=== PATIENT | female | born 1980 | race Caucasian/White ===

== ENCOUNTER 2017-12-31 12:02 | Emergency (ER) | payer OTHER ==
[~2017-12-31] VITALS: Ht 162.6 cm; Wt 72.6 kg
[~2017-12-31 12:02] MED LIST: ATIVAN0.5 MG PO; CARISOPRODOL 3350 MG PO; CLONAZEPAM 1 MG1 M1 PO; GABAPENTIN 100100 MG PO; KEFLEX500 MG PO; MACROBID 100 M100 M1 PO; METFORMIN HCL1000 MG PO; NOHOMEMEDICATIONS; NORCO 5-325 TA1 EACH PO; NORFLEX100 MG PO; PHENERGAN 25 MG25 M1 PO; PHENTERMINE H37.5 M1 PO; PROMS25 WY RECTAL; TRAMADOL 50 MG50 MG PO; [UNRECOGNIZED DRUG - REMARK]
[2017-12-31 12:04] VITALS: BP 135/94
[2017-12-31 12:41] LABS: ABSOLUTE NEUTROPHILS 6.4 thou/uL (1.4-8.2); BASOPHILS 0.6 % (0.0-2.0); EOSINOPHILS 0.8 % (0.0-3.0); HEMATOCRIT 41.5 % (37.0-47.0); LYMPHOCYTES 11.2 % (24.0-44.0); MCH 27.1 pg (26.0-34.0); MCHC 33.6 g/dL (28.0-37.0); MCV 80.5 fL (80.0-100.0); MONOCYTES 6.8 % (1.0-8.0); PLATELET COUNT 316 thou/uL (150-400); POLYS 80.6 % (36.0-66.0); RBC 5.16 mil/uL (4.20-5.00); RDW 15.2 % (10.5-14.5); WBC 7.9 thou/uL (4.0-11.0)
[2017-12-31] MEDS ORDERED: ZOFRAN ODT4 MG PO (12:45)
[2017-12-31] MEDS ORDERED: TESSALON PERLE100 MG PO (12:45)
[2017-12-31] MEDS ORDERED: PHENERGAN 25 MG25 M1 PO (12:45)
[2017-12-31] MEDS ORDERED: PROAIR HFA8.5 GM INH (12:48)
[2017-12-31 12:53] LABS: CALCIUM 9.1 mg/dL (8.5-10.1); CREATININE 0.7 mg/dL (0.6-1.0); POTASSIUM 3.6 mmol/L (3.5-5.1)
[2017-12-31 12:58] LABS: ALBUMIN 4.1 g/dL (3.4-5.0); DIRECT BILIRUBIN 0.1 mg/dL (<0.1-0.3); TOTAL BILIRUBIN 0.3 mg/dL (<0.1-1.0); TOTAL PROTEIN 7.8 g/dL (6.4-8.2)
[2017-12-31] MEDS ORDERED: ZOCOR20 MG PO (13:12)
[2017-12-31 13:15] LABS: URINE BILIRUBIN NEGATIVE (Negative); URINE BLOOD NEGATIVE (Negative); URINE CLARITY CLEAR; URINE COLOR YELLOW; URINE GLUCOSE-RANDOM* NEGATIVE (Negative); URINE KETONES 1+ (Negative); URINE LEUKOCYTES NEGATIVE (Negative); URINE NITRITE NEGATIVE (Negative); URINE PROTEIN (DIPSTICK) NEGATIVE (Negative); URINE UROBILINOGEN 0.2 E.U./dl (0.2-1.0)
== END 2017-12-31 13:00 | disposition home or self-care (01) ==
LOC: ER 12:02
PROVIDERS: Emergency Medicine
DX: J11.1 Influenza due to unidentified influenza virus with other respiratory manifestations (principal); J98.01 Acute bronchospasm; R11.2 Nausea with vomiting, unspecified; Z90.89 Acquired absence of other organs; E11.9 Type 2 diabetes mellitus without complications

== ENCOUNTER 2018-03-03 02:16 | Emergency (ER) | payer OTHER ==
[~2018-03-03] VITALS: Ht 165.1 cm; Wt 72.6 kg
[~2018-03-03 02:16] MED LIST changes: +PROAIR HFA8.5 GM INH; +TESSALON PERLE100 MG PO; +ZOCOR20 MG PO; +ZOFRAN ODT4 MG PO
[2018-03-03] MEDS ORDERED: FLOMAX0.4 MG PO (02:30)
[2018-03-03] MEDS ORDERED: CIPRO500 MG PO (02:30)
[2018-03-03 02:51] LABS: URINE BILIRUBIN NEGATIVE (Negative); URINE BLOOD 2+ (Negative); URINE CLARITY CLEAR; URINE COLOR YELLOW; URINE GLUCOSE-RANDOM* NEGATIVE (Negative); URINE KETONES NEGATIVE (Negative); URINE LEUKOCYTES-REFLEX NEGATIVE (Negative); URINE NITRITE-REFLEX NEGATIVE (Negative); URINE PROTEIN (DIPSTICK) 1+ (Negative); URINE SPECIFIC GRAVITY >= 1.030 (1.005-1.035); URINE UROBILINOGEN 0.2 E.U./dl (0.2-1.0)
[2018-03-03 03:06] LABS: BACTERIA-REFLEX 1-9 Few /HPF (None Seen); CASTS None Seen /LPF (None Seen); CRYSTALS None Seen /LPF (None Seen); MUCUS 4-6 Moderate strn/LPF (None Seen); SQUAMOUS >10 Many /LPF (0-3); TRANSITIONAL EPITHEL CELL >10 Many /LPF (None Seen); URINE RBC 3-10 Few /HPF (0-2); URINE WBC-REFLEX 0-5 Rare /HPF (0-5)
[2018-03-03 03:22] LABS: ABSOLUTE NEUTROPHILS 10.1 thou/uL (1.4-8.2); BASOPHILS 0.6 % (0.0-2.0); EOSINOPHILS 3.6 % (0.0-3.0); HEMATOCRIT 41.8 % (37.0-47.0); HEMOGLOBIN 13.8 gm/dL (12.0-15.0); MCH 26.8 pg (26.0-34.0); MCV 81.4 fL (80.0-100.0); MONOCYTES 5.2 % (1.0-8.0); PLATELET COUNT 454 thou/uL (150-400); POLYS 65.6 % (36.0-66.0); RBC 5.13 mil/uL (4.20-5.00); RDW 15.9 % (10.5-14.5); WBC 15.5 thou/uL (4.0-11.0)
[2018-03-03 03:30] LABS: CALCIUM 9.6 mg/dL (8.5-10.1); CREATININE 0.9 mg/dL (0.6-1.0); POTASSIUM 3.8 mmol/L (3.5-5.1)
[2018-03-03] MEDS ORDERED: KEFLEX500 M1 PO (04:52)
[2018-03-03] MEDS ORDERED: ZOFRAN ODT4 MG PO (04:52)
[2018-03-03] MEDS ORDERED: NORCO 5-325 TA1 EACH PO (04:52)
[2018-03-03 05:45] VITALS: BP 132/82
== END 2018-03-03 05:46 | disposition home or self-care (01) ==
LOC: ER 02:16
PROVIDERS: Emergency Medicine
DX: N20.0 Calculus of kidney (principal); E11.9 Type 2 diabetes mellitus without complications; E78.00 Pure hypercholesterolemia, unspecified; Z88.1 Allergy status to other antibiotic agents

== ENCOUNTER 2018-07-07 03:39 | Emergency (ER) | payer OTHER ==
[~2018-07-07] VITALS: Ht 165.1 cm; Wt 72.6 kg
[~2018-07-07 03:39] MED LIST changes: +CIPRO500 MG PO; +FLOMAX0.4 MG PO; +KEFLEX500 M1 PO
[2018-07-07] MEDS ORDERED: FARXIGA5 MG PO (04:14)
[2018-07-07] MEDS ORDERED: FLEXERIL PO (04:14)
[2018-07-07] MEDS ORDERED: TRAMADOL 50 MG50 MG PO (04:16)
[2018-07-07 05:15] VITALS: BP 136/81
== END 2018-07-07 05:16 | disposition home or self-care (01) ==
LOC: ER 03:39
DX: M54.41 Lumbago with sciatica, right side (principal); M41.9 Scoliosis, unspecified; E11.9 Type 2 diabetes mellitus without complications; E78.00 Pure hypercholesterolemia, unspecified; Z88.1 Allergy status to other antibiotic agents

== ENCOUNTER 2019-07-08 21:43 | Emergency (ER) | payer OTHER ==
[~2019-07-08] VITALS: Ht 167.6 cm; Wt 72.6 kg
[~2019-07-08 21:43] MED LIST changes: +FARXIGA5 MG PO; +FLEXERIL PO
[2019-07-08] MEDS ORDERED: GABAPENTIN 100100 MG PO (22:18)
[2019-07-08 22:48] VITALS: BP 144/96
== END 2019-07-08 22:50 | disposition home or self-care (01) ==
LOC: ER 21:43
DX: M54.32 Sciatica, left side (principal); E11.9 Type 2 diabetes mellitus without complications; Z88.1 Allergy status to other antibiotic agents; Z90.89 Acquired absence of other organs; Z90.711 Acquired absence of uterus with remaining cervical stump; Z87.442 Personal history of urinary calculi

== ENCOUNTER 2019-10-27 23:21 | Emergency (ER) | payer OTHER ==
[~2019-10-27] VITALS: Ht 162.6 cm; Wt 72.6 kg
[2019-10-28 00:13] LABS: URINE BILIRUBIN NEGATIVE (Negative); URINE BLOOD 1+ (Negative); URINE CLARITY CLOUDY; URINE COLOR YELLOW; URINE GLUCOSE-RANDOM* 3+ (Negative); URINE KETONES NEGATIVE (Negative); URINE NITRITE-REFLEX NEGATIVE (Negative); URINE PROTEIN (DIPSTICK) NEGATIVE (Negative); URINE SPECIFIC GRAVITY >= 1.030 (1.005-1.035); URINE UROBILINOGEN 0.2 E.U./dl (0.2-1.0)
[2019-10-28 00:16] LABS: URINE LEUKOCYTES-REFLEX 1+ (Negative)
[2019-10-28 00:24] LABS: CASTS None Seen /LPF (None Seen); CRYSTALS None Seen /LPF (None Seen); MUCUS 0-3 Light strn/LPF (None Seen); SQUAMOUS 4-10 Moderate /LPF (0-3); URINE RBC 3-10 Few /HPF (0-2); URINE WBC-REFLEX 6-15 Few /HPF (0-5); WBC CLUMPS Few (None Seen)
[2019-10-28] MEDS ORDERED: METFORMIN HCL1000 MG PO (00:51)
[2019-10-28] MEDS ORDERED: DOXYCYCLINE 10100 MG PO (00:51)
[2019-10-28] MEDS ORDERED: ZOCOR20 MG PO (00:51)
[2019-10-28 00:55] VITALS: BP 152/96
== END 2019-10-28 00:55 | disposition home or self-care (01) ==
LOC: ER 23:21
PROVIDERS: Emergency Medicine
DX: N89.8 Other specified noninflammatory disorders of vagina (principal); R30.0 Dysuria; E11.9 Type 2 diabetes mellitus without complications; E78.00 Pure hypercholesterolemia, unspecified; Z90.49 Acquired absence of other specified parts of digestive tract; Z87.442 Personal history of urinary calculi; Z90.711 Acquired absence of uterus with remaining cervical stump; Z88.1 Allergy status to other antibiotic agents

== ENCOUNTER 2019-11-26 05:34 | Emergency (ER) | payer OTHER ==
[~2019-11-26] VITALS: Ht 167.6 cm; Wt 72.6 kg
[~2019-11-26 05:34] MED LIST changes: +DOXYCYCLINE 10100 MG PO
[2019-11-26] MEDS ORDERED: LIDOCAINE 2%2 %/5 GM TOP ×3 (07:23→07:38)
[2019-11-26 07:44] VITALS: BP 123/87
== END 2019-11-26 07:45 | disposition home or self-care (01) ==
LOC: ER 05:34
DX: N76.0 Acute vaginitis (principal); E11.9 Type 2 diabetes mellitus without complications; E78.00 Pure hypercholesterolemia, unspecified; Z90.89 Acquired absence of other organs; Z87.442 Personal history of urinary calculi; Z90.711 Acquired absence of uterus with remaining cervical stump; Z88.1 Allergy status to other antibiotic agents

== ENCOUNTER 2019-12-21 18:25 | Emergency (ER) | payer OTHER ==
[~2019-12-21] VITALS: Ht 162.6 cm; Wt 73.5 kg
[~2019-12-21 18:25] MED LIST changes: +LIDOCAINE 2%2 %/5 GM TOP
[2019-12-21 19:03] LABS: AMP/METHAMP Negative (Negative); BARBITURATES Negative (Negative); BENZODIAZEPINES Negative (Negative); COCAINE Negative (Negative); METHADONE Negative (Negative); OPIATES Negative (Negative); PCP Negative (Negative)
[2019-12-21 19:11] LABS: ABSOLUTE NEUTROPHILS 8.3 thou/uL (1.4-8.2); BASOPHILS 0.7 % (0.0-2.0); EOSINOPHILS 1.1 % (0.0-3.0); HEMATOCRIT 45.2 % (37.0-47.0); HEMOGLOBIN 15.1 gm/dL (12.0-15.0); LYMPHOCYTES 17.8 % (24.0-44.0); MCH 28.9 pg (26.0-34.0); MCHC 33.5 g/dL (28.0-37.0); MCV 86.4 fL (80.0-100.0); MONOCYTES 4.4 % (1.0-8.0); PLATELET COUNT 335 thou/uL (150-400); RBC 5.23 mil/uL (4.20-5.00); RDW 14.6 % (10.5-14.5); WBC 10.9 thou/uL (4.0-11.0)
[2019-12-21 19:21] LABS: ANION GAP 11 mmol/L (7-16); BUN 12 mg/dL (7-18); CALCIUM 9.4 mg/dL (8.5-10.1); CHLORIDE 97 mmol/L (98-107); CO2 24 mmol/L (21-32); CREATININE 0.8 mg/dL (0.6-1.0); GLUCOSE 435 mg/dL (74-106); SODIUM 132 mmol/L (136-145)
[2019-12-21 19:22] LABS: POTASSIUM 4.2 mmol/L (3.5-5.1)
[2019-12-21 19:30] LABS: TROPONIN-I <0.06 ng/mL (<0.06)
--- NOTE | 2019-12-21 19:53 | EKG ---
[address] [address] [place] [address] ELECTROCARDIOGRAM REPORT Name: JAVIER OSORIO Room #: REG Iqra#: [id number] Admission: 12/21/19 Attend Phys: Discharge: Date of : 78 Report #: [id number] THIS REPORT FOR: //name// [facility] ED Test Date: 2019-12-21 Test Time: 18:33:12 Pat Name: JAVIER OSORIO Department: Room: Gender: F [employer] Press Operator: : 1980 Requested By: Helio Maharaj Order Number: [id number] MD: Nelson Durand Measurements Intervals [place] Rate: 109 P: 35 MT: 153 QRS: -30 QRSD: 92 T: 11 QT: 328 QTc: 442 Interpretive Statements Sinus tachycardia Poor R wave progression Cannot rule out inferior infarct, age indeterminate Compared to ECG 03/10/2014 09:36:13 Sinus bradycardia no longer present Electronically Signed On 12-21-2019 19:52:33 ELECTRON MICROSCOPIST by Nelson Durand [email or web address] <ELECTRONICALLY SIGNED> By: Nelson Durand MD, [facility] 12/21/191951 32 183 Nelson Durand MD, FACC /EPI
[2019-12-21 21:57] VITALS: BP 160/91
[2019-12-21] MEDS ORDERED: ZOCOR 20 MG TAB20 M1 PO (22:03)
[2019-12-21] MEDS ORDERED: METFORMIN HCL500 M3 PO (22:03)
== END 2019-12-21 22:15 | disposition home or self-care (01) ==
LOC: ER 18:25
PROVIDERS: Emergency Medicine
DX: F41.9 Anxiety disorder, unspecified (principal); R07.89 Other chest pain; E11.9 Type 2 diabetes mellitus without complications; Z90.89 Acquired absence of other organs; Z90.711 Acquired absence of uterus with remaining cervical stump; Z87.442 Personal history of urinary calculi; Z88.1 Allergy status to other antibiotic agents

== ENCOUNTER 2020-03-20 18:54 | Emergency (ER) | payer OTHER ==
[~2020-03-20] VITALS: Ht 167.6 cm; Wt 70.3 kg
[~2020-03-20 18:54] MED LIST changes: +METFORMIN HCL500 M3 PO; +ZOCOR 20 MG TAB20 M1 PO
[2020-03-20 19:11] LABS: URINE BILIRUBIN NEGATIVE (Negative); URINE BLOOD NEGATIVE (Negative); URINE CLARITY CLEAR; URINE COLOR YELLOW; URINE GLUCOSE-RANDOM* 3+ (Negative); URINE KETONES 1+ (Negative); URINE LEUKOCYTES-REFLEX NEGATIVE (Negative); URINE NITRITE-REFLEX NEGATIVE (Negative); URINE PROTEIN (DIPSTICK) NEGATIVE (Negative); URINE UROBILINOGEN 0.2 E.U./dl (0.2-1.0)
[2020-03-20] MEDS ORDERED: DOXYCYCLINE 10100 MG PO (19:41)
[2020-03-20 19:57] VITALS: BP 151/104
[2020-03-22 08:28] LABS: HSV PCR SOURCE BLISTER
== END 2020-03-20 19:58 | disposition home or self-care (01) ==
LOC: ER 18:54
PROVIDERS: Physician Assistant
DX: N76.0 Acute vaginitis (principal); E11.9 Type 2 diabetes mellitus without complications; I10 Essential (primary) hypertension; E78.00 Pure hypercholesterolemia, unspecified; Z20.2 Contact with and (suspected) exposure to infections with a predominantly sexual mode of transmission

== ENCOUNTER 2020-07-25 21:16 | Emergency (ER) | payer OTHER ==
[~2020-07-25] VITALS: Ht 167.6 cm; Wt 74.8 kg
[2020-07-25] MEDS ORDERED: SIMVASTATIN80 MG PO (21:31)
[2020-07-25] MEDS ORDERED: ZOCOR 10 MG TAB10 MG PO (21:32)
[2020-07-25] MEDS ORDERED: MIRTAZAPINE15 M2 PO (21:33)
[2020-07-25] MEDS ORDERED: BUSPIRONE HCL10 MG PO (21:33)
[2020-07-25] MEDS ORDERED: FARXIGA10 MG PO (21:34)
[2020-07-25] MEDS ORDERED: MINIVELLE1 EAC1 VAG (21:35)
[2020-07-25 23:12] VITALS: BP 145/110
== END 2020-07-25 23:13 | disposition left against medical advice (07) ==
LOC: ER 21:16
DX: M79.605 Pain in left leg (principal); Z53.21 Procedure and treatment not carried out due to patient leaving prior to being seen by health care provider

== ENCOUNTER 2020-11-11 12:39 | Emergency (ER) | payer OTHER ==
[~2020-11-11] VITALS: Ht 157.5 cm; Wt 79.4 kg
[~2020-11-11 12:39] MED LIST changes: +BUSPIRONE HCL10 MG PO; +FARXIGA10 MG PO; +MINIVELLE1 EAC1 VAG; +MIRTAZAPINE15 M2 PO; +SIMVASTATIN80 MG PO; +ZOCOR 10 MG TAB10 MG PO
[2020-11-11] MEDS ORDERED: PREDNISONE 20 M20 MG PO (13:14)
[2020-11-11] MEDS ORDERED: TIZANIDINE4 MG/1 TA1 PO (13:14)
[2020-11-11 15:01] VITALS: BP 136/98
== END 2020-11-11 15:02 | disposition home or self-care (01) ==
LOC: ER 12:39
DX: M54.32 Sciatica, left side (principal); R05 Cough; G89.29 Other chronic pain; E11.9 Type 2 diabetes mellitus without complications; E78.5 Hyperlipidemia, unspecified; Z90.89 Acquired absence of other organs; Z90.710 Acquired absence of both cervix and uterus; Z79.899 Other long term (current) drug therapy; Z20.828 Contact with and (suspected) exposure to other viral communicable diseases

== ENCOUNTER 2021-08-07 02:11 | Emergency (ER) | payer OTHER ==
[~2021-08-07] VITALS: Ht 167.6 cm; Wt 69.4 kg
[~2021-08-07 02:11] MED LIST changes: +PREDNISONE 20 M20 MG PO; +TIZANIDINE4 MG/1 TA1 PO
[2021-08-07 03:15] VITALS: BP 17/115
[2021-08-07] MEDS ORDERED: IBUPROFEN 800800 MG PO (03:24)
== END 2021-08-07 03:51 | disposition home or self-care (01) ==
LOC: ER 02:11
DX: M79.605 Pain in left leg (principal); E11.40 Type 2 diabetes mellitus with diabetic neuropathy, unspecified; E78.00 Pure hypercholesterolemia, unspecified; F41.9 Anxiety disorder, unspecified; I10 Essential (primary) hypertension; G62.9 Polyneuropathy, unspecified; Z09 Encounter for follow-up examination after completed treatment for conditions other than malignant neoplasm; Z90.711 Acquired absence of uterus with remaining cervical stump; Z90.89 Acquired absence of other organs; Z79.84 Long term (current) use of oral hypoglycemic drugs; Z79.899 Other long term (current) drug therapy; Z79.1 Long term (current) use of non-steroidal anti-inflammatories (NSAID); Z79.891 Long term (current) use of opiate analgesic

== ENCOUNTER → 2021-11-01 | Emergency (ER) | payer OTHER ==
[~2021-11-01] VITALS: Ht 167.6 cm; Wt 81.7 kg
[~2021-11-01] MED LIST changes: +HYDROCHLOROTHIA25 M1 PO; +IBUPROFEN 800800 MG PO
[2021-11-01 02:31] LABS: ABSOLUTE NEUTROPHILS 3.7 thou/uL (1.4-8.2); BASOPHILS 0.9 % (0.0-2.0); EOSINOPHILS 3.1 % (0.0-3.0); HEMATOCRIT 45.1 % (37.0-47.0); LYMPHOCYTES 39.3 % (24.0-44.0); MCH 28.3 pg (26.0-34.0); MCHC 33.3 g/dL (28.0-37.0); MCV 84.8 fL (80.0-100.0); MONOCYTES 5.6 % (1.0-8.0); PLATELET COUNT 347 thou/uL (150-400); POLYS 51.1 % (36.0-66.0); RBC 5.32 mil/uL (4.20-5.00); RDW 13.8 % (10.5-14.5); WBC 7.2 thou/uL (4.0-11.0)
[2021-11-01 02:36] LABS: CALCIUM 8.9 mg/dL (8.5-10.1); CREATININE 0.6 mg/dL (0.6-1.0); POTASSIUM 3.3 mmol/L (3.5-5.1)
[2021-11-01 02:38] LABS: ALBUMIN 3.9 g/dL (3.4-5.0); TOTAL BILIRUBIN 0.4 mg/dL (0.2-1.0); TOTAL PROTEIN 7.3 g/dL (6.4-8.2)
[2021-11-01 03:43] VITALS: BP 171/96
== END ==
LOC: ER 00:35
PROVIDERS: Emergency Medicine
DX: M79.605 Pain in left leg (principal); M79.652 Pain in left thigh; M54.50 Low back pain, unspecified; I10 Essential (primary) hypertension; E11.9 Type 2 diabetes mellitus without complications; F41.9 Anxiety disorder, unspecified; G62.9 Polyneuropathy, unspecified; F17.200 Nicotine dependence, unspecified, uncomplicated; Z87.442 Personal history of urinary calculi; Z90.49 Acquired absence of other specified parts of digestive tract; Z90.89 Acquired absence of other organs; Z79.84 Long term (current) use of oral hypoglycemic drugs; Z79.899 Other long term (current) drug therapy

== ENCOUNTER 2021-11-22 12:49 | Emergency (ER) | payer OTHER | END 2021-11-22 13:21 | disposition left against medical advice (07) | LOC: ER 12:49 | DX: M79.605 Pain in left leg (principal); Z53.21 Procedure and treatment not carried out due to patient leaving prior to being seen by health care provider ==